=== PATIENT | male | born 1965 | race Native Hawaiian/Other Pacific Islander ===

== ENCOUNTER 2019-10-13 12:52 | Outpatient (CLI) | payer OTHER ==
[~2019-10-13 12:52] MED LIST: TIOTCAP2 INH
== END 2019-10-13 12:55 | disposition short-term general hospital (02) ==
LOC: AMB 12:52
DX: R46.4 Slowness and poor responsiveness (principal)
CPT/HCPCS: A0425; A0427

== ENCOUNTER 2019-10-13 13:01 | Emergency (ER) | payer OTHER ==
[~2019-10-13] VITALS: Ht 177.8 cm; Wt 68.5 kg
== END 2019-10-13 13:06 | disposition left against medical advice (07) ==
LOC: ED 13:01
DX: R46.4 Slowness and poor responsiveness (principal); Z53.29 Procedure and treatment not carried out because of patient's decision for other reasons

== ENCOUNTER 2021-07-16 23:31 | Emergency (ER) | payer OTHER ==
[~2021-07-16] VITALS: Ht 177.8 cm; Wt 68.0 kg
[2021-07-17 00:19] LABS: PARTIAL THROMBOPLASTIN TIME 37.7 SECONDS (24.5-33.6)
[2021-07-17 00:20] LABS: PLATELET COUNT 345 K/uL (142-355)
[2021-07-17 00:23] LABS: POTASSIUM 4.2 mmol/L (3.6-5.2)
[2021-07-17 01:45] VITALS: BP 138/72; TEMP 94.4
== END 2021-07-17 02:00 | disposition home or self-care (01) ==
LOC: ED 23:31
PROVIDERS: Emergency Medicine
DX: N28.9 Disorder of kidney and ureter, unspecified (principal); R73.9 Hyperglycemia, unspecified; F19.10 Other psychoactive substance abuse, uncomplicated; R64 Cachexia; Z53.29 Procedure and treatment not carried out because of patient's decision for other reasons
CPT/HCPCS: 36415; 80053; 80307; 80320; 81000; 82550; 84484; 85027; 85610; 85730; 93005; 96360; 99284